=== PATIENT | female | born 1990 | race Hispanic/Latino ===

== ENCOUNTER 2017-02-26 15:16 | Emergency (ER) | payer MEDICAID ==
[2017-02-26 16:13] VITALS: BP 110/68
[2017-02-26] MEDS ORDERED: NORCO 5/325 PO ONE (16:35)
--- NOTE | 2017-02-26 16:35 | Emergency Department Report ---
HPI - General Chief Complaint: Dental/Oral Time Seen by Provider: 02/26/17 16:35 - HPI HPI: Patient reports that she has oral abscess 2-3 days. She says is located to the back of her front upper tooth. Patient reports feeling a little warm and low nauseous yesterday. Denies any facial swelling. She says she has multiple cavities and she does have a dentist but they're close un[place] able to get her and so she came to the emergency room instead. She said her pain is 7 out of 10 and aching and throbbing to the upper front tooth. She says she took Tylenol without any relief. Denies any fever that she knows of. Pain worse with eating. Denies any trauma. ED Past Medical Hx - Past Medical History Previous Medical History?: No Hx Hypertension: No Hx Diabetes: No Hx Deep Vein Thrombosis: No Hx Renal Disease: No Hx Sickle Cell Disease: No Hx Seizures: No Hx Asthma: No Hx HIV: No - Surgical History Past Surgical History?: Yes Additional Surgical History: tonsilectomy/adenoidectomy - Family History Family history: no significant - Social History Smoking Status: Current Some Day Smoker Substance Use Type: None - Medications Home Medications: Home Medications Medication Instructions Recorded Confirmed Last Taken Type Azithromycin Oral Liqd [Zithromax 575 mg PO QDAY #58 ml 05/31/14 Unknown Rx 200 MG/5 ML ORAL LIQ] Fluconazole 150 mg PO ONCE #2 tablet 05/31/14 Unknown Rx Ondansetron [Zofran] 4 mg PO Q6HR PRN #20 tablet 05/31/14 Unknown Rx Acetaminophen/Codeine [Tylenol 1 tab PO Q6H PRN #12 tab 02/26/17 Unknown Rx /Codeine # 3 tab] Clindamycin [Clindamycin CAP] 300 mg PO Q8H #30 cap 02/26/17 Unknown Rx Ibuprofen [Motrin 800 MG tab] 800 mg PO Q8H PRN #15 tablet 02/26/17 Unknown Rx ED Review of Systems ROS: Stated complaint: ABSCESS/SWELLING IN MOUTH Other details as noted in HPI Comment: All other systems reviewed and negative Constitutional: no symptoms reported Eyes: denies: eye discharge ENT: dental pain. denies: ear pain, throat pain, hearing loss, epistaxis, congestion (denies any nasal congestion or runny nose), other Respiratory: no symptoms reported Cardiovascular: denies: chest pain, palpitations, dyspnea on exertion, edema, syncope Gastrointestinal: denies: abdominal pain, nausea, vomiting Musculoskeletal: denies: back pain, joint swelling, arthralgia, myalgia Skin: denies: rash Neurological: denies: headache, abnormal gait, vertigo Physical Exam - Physical Exam Vital Signs: Vital Signs 02/26/17 16:06 Temperature 98.6 F Pulse Rate 82 Respiratory 16 Rate Blood Pressure 110/68 O2 Sat by Pulse 95 Oximetry General: This is a 27-year-old female well-nourished well-developed in no acute distress. Physical Exam: Head: Normocephalic, atraumatic, no abrasion, no bruising and no contusion. Eyes: Biateral pupils equal and reactive to light, bilateral EOM intact.. Bilateral conjunctival and sclera without injection, normal accommodation. Ears: Bilateral EAC without any redness drainage or swelling, Bilateral TM pearly heller .bilateral tragus is normal and nontender. No auricular abnormality. No Mastoid bones tenderness. Nose: Moist, normal mucosa without any drainage. No maxillary or frontal sinus tenderness Mouth: No Pharyngeal erythema, Uvula is midline and oral airways patent. Positive for gingival inflammation multiple dental caries throughout mouth. Patient with tenderness behind to this #8 and 9 but no abscess seen. Tongue is normal. No peritonsillar abscesses. Neck: Supple, NoCervical adenopathy, full range of motion and no C-spine tenderness. No swelling or tracheal deviation Cardiovascular: S1, S2. Regular rate and rhythm. No murmur. Capillary refill is less then 3 seconds. Lungs: Clear to auscultate bilaterally. No rhonchi, wheezes or rales. No chest wall tenderness MSK: Strength 5/5 in all extremities. No joint deformity or crepitus. Normal inspection. Full range of motion to all extremities Extremities: No clubbing, cyanosis or edema. +2 pulses. No neurovascular compromise Skin: Clean, dry and intact. No rash or lesions. Psych: Normal mood and behavior. ED Course Vital Signs 02/26/17 16:06 Temperature 98.6 F Pulse Rate 82 Respiratory 16 Rate Blood Pressure 110/68 O2 Sat by Pulse 95 Oximetry - Reevaluation(s) Reevaluation #1: 02/26/17 17:55 Patient given [place] 5/325 2 tablets in the emergency room which relieved her toothache. ED Medical Decision Making - Medical Decision Making ED course: Care reported that she has toothache that's been ongoing and she cannot get in with her dentist. Physical findings for widespread gingivitis, dental tenderness to upper front tooth. Multiple dental caries. Patient has some missing tooth and poor oral care overall. Patient was given [place] 5/325 2 tablets in the emergency room to relieve pain and I discussed with her that she needs to call her dentist when they're open next week and schedule an appointment to see them because she will need extensive dental work to include cleaning and other dental procedure. Thus with her that she needs to floss twice daily and gargle with Listerine mouthwash to reduce gum disease. Also encouraged her that smoking can cause her gum to deteriorate so she needs to stop smoking. She was undescended discharge instruction and treatment plan and discharged home in stable condition with a prescription for Motrin, Tylenol 3 and clindamycin. Critical care attestation.: If time is entered above; I have spent that time in minutes in the direct care of this critically ill patient, excluding procedure time. ED Disposition Clinical Impression: Tooth ache, Dental caries, Gingivitis, Gum symptoms, Needs smoking cessation education Disposition: DC-01 TO HOME OR SELFCARE Is pt being admited?: No Does the pt Need Aspirin: No Condition: Stable Instructions: Dental Caries (ED), Toothache (ED), Gingivitis (ED), How to Stop Smoking (ED) Additional Instructions: Please do not drive or operate heavy machinery while taking Tylenol No. 3 as this medication causes drowsiness Please call your dentist on Wednesday or Wednesday to schedule an appointment for evaluation and treatment of gum disease and multiple dental caries. Floss Floss twice daily and use Listerine mouthwash to reduce gum disease. Take antibiotic as prescribed Prescriptions: Acetaminophen/Codeine [Tylenol /Codeine # 3 tab] 1 tab PO Q6H PRN #12 tab PRN Reason: Pain Clindamycin [Clindamycin CAP] 300 mg PO Q8H #30 cap Ibuprofen [Motrin 800 MG tab] 800 mg PO Q8H PRN #15 tablet PRN Reason: Pain Referrals: PRIMARY CARE,MD [Primary Care Provider] - 3-5 Days Your, dentist [Other] - 3-5 Days (Please followup with your. Dentist on Wednesday or Wednesday to schedule an appointment for evaluation and treatment of gum disease, dental caries and poor oral care.) Forms: Work/School Release Form(ED)
== END 2017-02-26 18:16 | disposition home or self-care (01) ==
LOC: ED 15:16
DX: K02.9 Dental caries, unspecified (principal); K05.10 Chronic gingivitis, plaque induced; F17.200 Nicotine dependence, unspecified, uncomplicated; Z90.89 Acquired absence of other organs
CPT/HCPCS: 99282